=== PATIENT | male | born 1985 | race Caucasian/White ===

== ENCOUNTER 2016-06-30 07:56 | Emergency (ER) | payer SELFPAY ==
[2016-06-30 08:03] VITALS: BMI 42.6
[2016-06-30] MEDS ORDERED: ACETAMINOPHEN 325 MG/TAB TABLET PO ONE (08:25)
[2016-06-30] MEDS ORDERED: IBUPROFEN 600 MG TAB PO STA (08:25)
[2016-06-30] MEDS ORDERED: NS 1,000 ML IV ONE (08:25)
--- NOTE | 2016-06-30 08:29 | EDPRACDOC ---
- General Information Chief Complaint: Fever Stated Complaint: FEVER/ SYNCOPE Time Seen by Provider: 06/30/16 08:20 Mode of Arrival: Car Home Medications: Home Medications Azithromycin 250 mg PO DAILY #4 tablet 06/30/16 Allergies/Adverse Reactions: Allergies Allergy/AdvReac Type Severity Reaction Status Date / Time No Known Allergies Allergy Verified 06/30/16 07:59 - History of Present Illness Onset: 2 days HPI: PT PRESENTS WITH FEVER, CHILLS, SYNCOPE, COUGH, AND HEADACHE THAT BEGAN 2 DAYS AGO. Max Temperature: 100 F Improves With: Reports: Nothing Symptoms: Reports: Chills, Fever ED Past Medical History - History Reviewed Yes Nurses notes reviewed and agree except as marked No Past Medical History: Yes Patient has no past medical history - Patient Medical History Psychological History: Denies: Depression - Social Medical History Smoking Status: Never smoker Lives With: Family Lives In: Home EDM Review of Systems - Review of Systems ROS Negative Except as Marked: Yes All systems reviewed and were negative except as marked Constitutional: Chills, Fever, Fatigue, Weakness Nose: negative: Congestion, Discharge Respiratory: Cough Cardiovascular: Syncope. negative: Chest Pain Gastrointestinal: negative: Pain, Vomiting Genitourinary: negative: Dysuria Neurological: Headache - Physical Exam Constitutional: Alert Oriented to: Time, Person, Place Last recorded Vital Signs: Last Vital Signs Temp 100.2 F 06/30/16 07:59 Pulse 122 H 06/30/16 08:01 Resp 16 06/30/16 07:59 BP 120/67 06/30/16 08:01 Pulse Ox 95 06/30/16 07:59 Oxygen Pulse Oxygen Saturation 95 O2 Device Room Air Oxygen Flow Rate Fraction of Inspired Oxygen ( FIO2) - HEENT Head: negative: Deformity, Laceration Eye Exam: negative: Conjunctival Injection, Pale Conjunctiva Oropharynx: negative: Membranes Dry Nose: negative: Congestion, Discharge Neck: negative: Limited ROM - Respiratory/Cardiovascular Respiratory: Normal - CTA. negative: Accessory Muscle Use, Diminished, Tachypnea Cardiovascular: Tachycardia. negative: Bradycardia, Irregular - GI Auscultation: Normal Palpation: Normal Tenderness: Non tender - Musculoskeletal Extremities: Pedal Pulse (PALPABLE), Radial Pulse (PALPABLE). negative: Calf Tenderness, Pedal Edema - Integumentary Skin: Hot, Dry. negative: Rash - Neurologic Memory Impaired: Normal Motor Function: Normal Mood Description: Anxious, Appropriate Thought: Coherent Perception: Normal - Results 06/30/16 08:30 06/30/16 08:30 - EKG EKG #1 EKG Time: 08:36 -: Yes EKG interpreted by me Rate: bpm: 90 Rhythm: NSR Block: None ST: Nonsp Decision Time to Discharge: 10:58 - Departure Yes I personally saw and evaluated the patient. Disposition: Home Final Diagnosis: Pneumonia Instructions: Community Acquired Pneumonia (ED) Education/Counseling Given To: Patient, Family Member Education/Counseling Given Regarding: Diagnosis, Treatment, Prognosis, Follow Up Referrals: None,No Provider [Primary Care Provider] - One Week Jordan Soares MD [Staff Physician] - As Needed Prescriptions: Azithromycin 250 mg PO DAILY #4 tablet Forms: Excuse Note Additional Instructions: MAKE SURE TO REST AND TAKE IN PLENTY OF FLUIDS. YOU NEED TO OBTAIN A CT OF YOUR CHEST IN 6-8 WEEKS TO MAKE SURE THAT THE ABNORMALITIES ARE RELATED TO INFECTION AND NOT SOME OTHER PROCESS.
[2016-06-30 08:55] LABS: PARTIAL THROMB. TIME 29.4 SEC (22-35); PT-INR 1.2
[2016-06-30 08:59] LABS: BLOOD UREA NITROGEN 10 MG/DL (9-20); CALCIUM 8.9 MG/DL (8.4-10.2); CALCULATED OSMOLALITY 262 MOs/Kg (270-290); CHLORIDE 99 mEq/L (98-107); CPK TOTAL WITH POSSIBLE MB 157 IU/L (55-170); GLUCOSE 110 MG/DL (70-99); MPV 8.4 fL (7.4-10.4); SODIUM LEVEL 136 mEq/L (137-146); TOTAL PROTEIN 8.1 G/DL (6.3-8.2)
--- NOTE | 2016-06-30 09:12 | DIRPT ---
CLINICAL DATA: Syncope, fever for 3 days, cough, headache, passed out this morning EXAM: CHEST 2 VIEW COMPARISON: 06/16/2006 FINDINGS: Normal heart size, mediastinal contours, and pulmonary vascularity. Chronic peribronchial thickening. Questionable basilar atelectasis versus infiltrate on lateral view, potentially RIGHT lower lobe Bones unremarkable. IMPRESSION: Minimal bronchitic changes with question mild atelectasis versus infiltrate in RIGHT lower lobe. Electronically Signed By: Titus Mack M.D. On: 06/30/2016 09:09
[2016-06-30 09:31] LABS: SEG NEUTROPHIL 49 % (45-76); TOTAL CELL COUNT 100
[2016-06-30] MEDS ORDERED: Pharmacy Review for Metformin - IV Contrast Given SCH (10:00)
[2016-06-30 10:33] VITALS: TEMP 98.6
[2016-06-30 10:39] LABS: LEUKOCYTES/URINE NEG (NEGATIVE); NITRITE/URINE NEG (NEGATIVE); RBC/URINE 0-2 (0-2); URINE OCCULT BLOOD NEG (NEG/TRACE); WBC/URINE 0-2 (0-2)
--- NOTE | 2016-06-30 10:51 | DIRPT ---
CLINICAL DATA: Elevated D-dimer with syncope and fever. EXAM: CT ANGIOGRAPHY CHEST WITH CONTRAST TECHNIQUE: Multidetector CT imaging of the chest was performed using the standard protocol during bolus administration of intravenous contrast. Multiplanar CT image reconstructions and MIPs were obtained to evaluate the vascular anatomy. CONTRAST: 100 mL Isovue 370 COMPARISON: None. FINDINGS: Contrast opacification of the pulmonary arteries is suboptimal. There is no evidence for a large central pulmonary embolism but limited evaluation of the segmental and more distal branches. Normal caliber of the thoracic aorta without evidence of dissection. There is soft tissue in the anterior mediastinum which is more prominent than would be expected for thymus at this age. This tissue measures up to 1.9 cm in the AP dimension on sequence 3, image 36. The tissue appears to be wrapping around the left side of the mediastinum. There is no significant mediastinal lymphadenopathy. There appears to be mild fullness in the right hilar tissue which could be reactive. No acute abnormality in the upper abdomen. The trachea and mainstem bronchi are patent. Patchy densities throughout both lungs may be related to atelectasis or expiratory phase of imaging. However, there are focal parenchymal densities in the right middle lobe, best seen on sequence 4, image 54. In addition, there are prominent parenchymal densities in the periphery of the left lower lobe, best seen on sequence 4, image 71. These findings are concerning for an acute infectious or inflammatory process. No large pleural effusions. No acute bone abnormality. Review of the MIP images confirms the above findings. IMPRESSION: The study is suboptimal for evaluation of pulmonary emboli as described. There is no evidence for a large central pulmonary embolism. Scattered areas of parenchymal lung disease in the right middle lobe and left lower lobe. Findings are suggestive for multi focal pneumonia. Soft tissue in the anterior mediastinum most likely represents thymus but this is more prominent than would be expected for a patient of this age. Recommend a follow-up CT in 6-8 weeks to ensure stability and exclude a neoplastic process such as thymoma or lymphoma. Electronically Signed By: Duane Greene M.D. On: 06/30/2016 10:48
[2016-06-30] MEDS ORDERED: LEVOFLOXACIN 750 MG TAB PO ONE (10:58)
[2016-06-30] MEDS ORDERED: AZITHROMYCIN 250 MG TAB PO ONE (10:59)
[2016-06-30 11:23] VITALS: BP 128/58; PULSE 77
== END 2016-06-30 11:17 | disposition home or self-care (01) ==
LOC: ED 07:56
DX: J18.9 Pneumonia, unspecified organism (principal)
CPT/HCPCS: 36415; 71020; 71275; 80053; 81001; 82550; 83605; 84484; 85007; 85027; 85379; 85610; 85730; 87040; 87086; 87804; 93005; 96360; 99283; A9698; J3490